=== PATIENT | male | born 1970 | race Caucasian/White ===

== ENCOUNTER 2016-12-31 05:43 | Emergency (ER) | payer BC ==
[~2016-12-31] VITALS: Ht 175.3 cm; Wt 89.4 kg
[2016-12-31] MEDS ORDERED: ZESTORETIC 20-1 EAC1 (05:56)
[2016-12-31] MEDS ORDERED: DEPO-TESTOT200 MG/ML (05:57)
== END 2016-12-31 06:28 | disposition home or self-care (01) ==
LOC: SED 05:43
DX: S83.91XA Sprain of unspecified site of right knee, initial encounter (principal); I10 Essential (primary) hypertension; Z79.899 Other long term (current) drug therapy; X50.0XXA Overexertion from strenuous movement or load, initial encounter
CPT/HCPCS: 99283